=== PATIENT | male | born 1955 | race Caucasian/White ===

== ENCOUNTER 2017-01-04 13:33 | Emergency (ER) | payer MEDICAID ==
[~2017-01-04] VITALS: Ht 160 cm; Wt 63.5 kg
[2017-01-04 15:42] LABS: BASOPHIL % 0.4 % (0-2); PLATELET COUNT 217 x10^3mcL (130-400); RED CELL DISTRIBUTION WIDTH 14.1 % (11.5-14.5)
[2017-01-04 15:46] LABS: CALCIUM 8.7 mg/dL (8.5-10.1); CARBON DIOXIDE 32.4 mmol/L (21-32); CHLORIDE SERUM 99 mmol/L (98-107); CREATININE SERUM 0.8 mg/dL (0.7-1.3); GFR1 > 60 mL/min; GLUCOSE SERUM 115 mg/dL (74-106); POTASSIUM SERUM 4.1 mmol/L (3.5-5.1); SODIUM SERUM 136 mmol/L (136-145)
[2017-01-04 15:55] LABS: ALKALINE PHOSPHATASE 117 U/L (46-116); ALT/SGPT 45 U/L (16-63); AST/SGOT 37 U/L (15-37); BILIRUBIN TOTAL 1.36 mg/dL (0.20-1.00); TOTAL PROTEIN, SERUM 7.3 g/dL (6.4-8.2)
[2017-01-04 15:57] LABS: ALBUMIN 2.9 g/dL (3.4-5.0)
[2017-01-04 17:43] LABS: UA SPECIFIC GRAVITY 1.015 (1.005-1.035); microscopic required? YES; urine erythrocyte TRACE (NEGATIVE)
[2017-01-04 18:36] VITALS: BP 125/78
== END 2017-01-04 18:36 | disposition home or self-care (01) ==
LOC: ED 13:33
PROVIDERS: Emergency Medicine
DX: N39.0 Urinary tract infection, site not specified (principal); I10 Essential (primary) hypertension; Z79.899 Other long term (current) drug therapy; Z86.73 Personal history of transient ischemic attack (TIA), and cerebral infarction without residual deficits
CPT/HCPCS: 83880; J7030; Q0092